=== PATIENT | male | born 1995 | race Caucasian/White ===

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

== ENCOUNTER → 2017-01-12 | Outpatient (CLI) | payer OTHER ==
--- NOTE | 2017-01-13 05:27 | REP ---
Clinical: Abdominal pain and diarrhea. Technique: Real time ram scale ultrasound examination using curved array transducer. Findings: The liver is mildly enlarged measuring greater than 20.2 cm in craniocaudal length and demonstrates diffuse fatty infiltration without focal hepatic lesion identified. Moderate splenomegaly noted without focal splenic lesion. Spleen measures 13.8 x 5.7 x 11.8 cm (SI equals 928). Bilateral kidneys are normal in reniform shape and echogenicity without hydronephrosis or obvious abnormality. Right kidney measures 12.0 x 5.6 x 5.5 cm. Left kidney measures 12.9 x 5.0 x 6.1 cm. Gallbladder and biliary system are unremarkable and without gallstones, wall thickening or pericholecystic fluid. No biliary ductal dilatation is appreciated and the common bile duct measures 2 mm diameter. Visualized portions of the abdominal aorta are normal and measures 2 cm maximal diameter. No ascites. Impression: 1. Findings suggest hepatosplenomegaly and hepatosteatosis without focal hepatic or splenic lesion identified. 2. Otherwise normal complete abdominal ultrasound. Signed by Jose Alaniz MD 01/13/2017 05:18 A
== END ==
LOC: M RAD 08:04
PROVIDERS: ATTEND Internal Medicine Gastroenterology
DX: R19.7 Diarrhea, unspecified (principal)

== ENCOUNTER → 2017-02-05 | Outpatient (CLI) | payer OTHER ==
[2017-02-05 12:33] LABS: ALBUMIN 4.6 GM/DL (3.2-5.2); ALBUMIN/GLOBULIN RATIO 1.48 (1.00-1.93); ALKALINE PHOSPHATASE 90 U/L (45-117); ALT/SGPT 200 U/L (12-78); AST/SGOT 71 U/L (7-37); BILIRUBIN,DIRECT 0.2 MG/DL (0.0-0.2); BILIRUBIN,TOTAL 0.6 MG/DL (0.2-1.0); CHOLESTEROL LEVEL 170 MG/DL (<200); FERRITIN 249 NG/ML (26-388); PERCENT SATURATION 40.1 % (19.7-50.0); TOTAL IRON BINDING CAPACITY 362 UG/DL (250-450); TOTAL PROTEIN 7.7 GM/DL (6.4-8.2); TRIGLYCERIDES LEVEL 145 MG/DL (<150)
[2017-02-10 08:11] LABS: ALPHA 1 ANTITRYPSIN 142 mg/dL (90-200)
== END ==
LOC: M LAB 11:04
PROVIDERS: ATTEND Internal Medicine Gastroenterology
DX: R19.7 Diarrhea, unspecified (principal)

== ENCOUNTER → 2017-02-27 | Outpatient (CLI) | payer OTHER | LOC: M LAB 10:40 | PROVIDERS: ATTEND Internal Medicine Gastroenterology | DX: R19.7 Diarrhea, unspecified (principal) ==

== ENCOUNTER → 2017-03-03 | Outpatient (CLI) | payer OTHER ==
[2017-03-03 12:27] LABS: BASO % 0.3 % (0.0-1.0); EOS # 0.3 10^3/uL (0.0-0.50); EOS % 4.4 % (0.0-3.0); IMMATURE GRANULOCYTE % 0.3 % (0-0); LYMPH # 2.1 10^3/uL (1.5-6.5); LYMPH % 27.6 % (24.0-44.0); MEAN CORPUSCULAR HEMOGLOBIN 28.2 pg (27.0-33.0); MEAN CORPUSCULAR HGB CONC 33.3 g/dl (32.0-36.5); MEAN CORPUSCULAR VOLUME 84.9 fl (80.0-96.0); MONO # 0.6 10^3/uL (0.0-0.8); MONO % 8.5 % (0.0-5.0); NEUTROPHILS # 4.5 10^3/uL (1.8-7.7); NEUTROPHILS % 58.9 % (36.0-66.0); PLATELET COUNT, AUTOMATED 259 10^3/uL (150-450); WHITE BLOOD COUNT 7.6 10^3/uL (4.0-10.0)
[2017-03-03 12:43] LABS: INR 0.96
== END ==
LOC: M LAB 11:34
PROVIDERS: ATTEND Internal Medicine Gastroenterology
DX: R94.5 Abnormal results of liver function studies (principal)

== ENCOUNTER → 2017-03-04 | Outpatient (CLI) | payer OTHER ==
[~2017-03-04] MED LIST: LIDOCAINE 1% MDV 20ML VIAL As Ordered ONE
--- NOTE | 2017-03-04 16:40 | REP ---
ULTRASOUND GUIDED LIVER BIOPSY: The procedure was performed under the direct supervision of Dr. Brown. The risks and benefits of the procedure were explained to the patient and informed consent was obtained. The left lobe of the liver was localized using ultrasound guidance. The skin was prepped and draped in a sterile fashion. 1% Xylocaine was used a local anesthetic. Using ultrasound guidance a 19/20-gauge coaxial needle biopsy needle system was inserted and advanced into the liver. Four core biopsy samples were obtained and sent to the lab. The patient tolerated the procedure well and there were no immediate complications. After the appropriate amount of monitored convalescence the patient was discharged from the department. Reviewed by RENEA Land 03/05/2017 01:41 PEdited and Signed by Dipak Brown MD 03/05/2017 08:24 P
== END ==
LOC: M RADPRO 09:21
PROVIDERS: ATTEND Internal Medicine Gastroenterology
DX: K76.0 Fatty (change of) liver, not elsewhere classified (principal)

== ENCOUNTER → 2017-03-04 | Outpatient (CLI) | payer OTHER | LOC: M SLEEP 19:33 | PROVIDERS: ATTEND Internal Medicine Pulmonary Disease | DX: G47.30 Sleep apnea, unspecified (principal) ==

== ENCOUNTER → 2017-04-19 | Outpatient (CLI) | payer OTHER | LOC: M SLEEP 20:00 | DX: G47.33 Obstructive sleep apnea (adult) (pediatric) (principal) | CPT/HCPCS: 95811 ==

== ENCOUNTER → 2017-05-29 | Outpatient (REF) ==
[2017-05-29 14:10] LABS: LITHIUM LEVEL < 0.20 MEQ/L (0.60-1.20)
== END ==
LOC: M LAB REF 13:31
DX: F31.9 Bipolar disorder, unspecified (principal)